=== PATIENT | female | born 1945 | race Caucasian/White ===

== ENCOUNTER 2019-09-19 20:49 | Emergency (ER) | payer OTHER ==
[~2019-09-19] VITALS: Ht 170.2 cm; Wt 136.1 kg
[2019-09-19 21:00] VITALS: BP_SYST 128
--- NOTE | 2019-09-19 21:00 | NUR ---
Patient triaged and placed in er [address] w/ kennel hand gurotilio. VSS and patient appears in no acute distress at this time. Accompanied by kennel hand, awaiting available bed, and MD notified of need for MSE.
[2019-09-19 22:26] LABS: ANION GAP 11 (5-15); CALCIUM 8.3 mg/dL (8.4-11.0); CHLORIDE 107 mmol/L (98-107); CREATININE 1.59 mg/dL (0.55-1.30); GLUCOSE 83 mg/dL (70-99); POTASSIUM 3.9 mmol/L (3.5-5.1); SODIUM SERUM 141 mmol/L (136-145); UREA NITROGEN, BLOOD 24 mg/dL (8-21)
[2019-09-19 22:28] LABS: BASOPHILS % (AUTO) 0.3 % (0.0-2.0); HEMOGLOBIN 14.1 g/dL (12.0-16.0); LYMPHOCYTES # (AUTO) 0.7 K/uL (1.0-5.5); LYMPHOCYTES % (AUTO) 5.3 % (20.5-51.5); MEAN CORPUSCULAR HEMOGLOBIN 32 pg (27-31); MEAN CORPUSCULAR HGB CONC 34 % (32-36); MEAN CORPUSCULAR VOLUME 94 fL (79.0-98.0); MONOCYTES # (AUTO) 0.8 K/uL (0.0-1.0); MONOCYTES % (AUTO) 6.1 % (1.7-9.3); NEUTROPHILS # (AUTO) 10.9 K/uL (1.8-7.7); NEUTROPHILS % (AUTO) 88.3 % (40.0-70.0); PLATELET COUNT (AUTO) 455 K/uL (130-430); RED BLOOD CELL COUNT(AUTO) 4.46 MIL/uL (4.2-6.2); RED CELL DISTRIBUTION WIDTH 14.2 % (9.0-15.0); WHITE BLOOD COUNT (AUTO) 12.4 K/uL (4.8-10.8)
[2019-09-19 22:37] LABS: PROTHROMBIN TIME 9.7 SECS (9.5-12.5); TOTAL BILIRUBIN 0.5 mg/dL (0.0-1.0)
[2019-09-19 22:38] LABS: ALANINE AMINOTRANSFERASE 36 U/L (12-78); ALBUMIN 1.4 g/dL (3.4-4.8); ASPARTATE AMINOTRANSFERASE 86 U/L (10-37)
--- NOTE | 2019-09-19 22:40 | NUR ---
Placed in room 2 . Placed on cardiac cath technologist, blood pressure machine and pulse oximeter. To gown for exam. Side rails up. Report given to report given to Callie SHERIFF.
--- NOTE | 2019-09-19 22:45 | NUR ---
ED MD George at bedside for medical evaluation.
--- NOTE | 2019-09-19 22:50 | NUR ---
Assumed care of patient, patient brought to ED for c/o hypoglycemia. Patient was reported to be found by daughter, patient was lethargic, with blood glucose 36. Patient given 250ml D10 and bs 136. On arrival to ED, patient's bs 85. Patient has hx of DM and HTN. Patient AOx4, GCS at this time.
--- NOTE | 2019-09-20 | NUR ---
Patient resting comfortably at this time. No acute distress noted.
--- NOTE | 2019-09-20 01:55 | NUR ---
Patient assisted with a bedpan. Patient reports that she has difficulty with ambulation.
--- NOTE | 2019-09-20 04:10 | NUR ---
Blood glucose at this time 68. Patient given juice and a sandwich. Patient tolerated PO intake well.
[2019-09-20 05:35] LABS: CREATINE KINASE MB 33.5 ng/mL (0-3.6)
--- NOTE | 2019-09-20 06:15 | NUR ---
Incontinent care provided. Patient noted with abrasions to bilateral knees and left elbow. Patient states she has difficulty getting around her house and lives by herself.
[2019-09-20] MEDS: NACL 0.9% 1,000 ML IV ONE ×2 (06:24→06:44)
[2019-09-20] MEDS ORDERED: NACL 0.9% 1,000 ML IV ONE (06:30)
--- NOTE | 2019-09-20 06:35 | NUR ---
Blood sugar 65 at this time. MD George made aware. Patient provided with another sandwich, orange juice, and jello.
[2019-09-20] MEDS ORDERED: D10W 250 ML IV SCH (06:45)
[2019-09-20] MEDS ORDERED: D5W 250 ML IV ONE (07:00)
--- NOTE | 2019-09-20 07:05 | NUR ---
Patient started on D5W 250ml bolus.
--- NOTE | 2019-09-20 07:24 | NUR ---
BS 95 at this time.
--- NOTE | 2019-09-20 07:26 | NUR ---
Report given to SHARITA Yi. All care endorsed.
--- NOTE | 2019-09-20 07:40 | NUR ---
PT RESTING IN BED NO S/S OF DISTRESS AT THIS TIME
--- NOTE | 2019-09-20 09:15 | NUR ---
PT REASSESSED BP AND CLONIDINE ADMINISTERED BEFORE DC
[2019-09-20] MEDS ORDERED: cloNIDine HCL 0.1 MG TABLET PO ONE (09:30)
--- NOTE | 2019-09-20 09:35 | NUR ---
Patient to be transferred to [facility]. Is being transferred due to higher level of care. Receiving facility has accepting physician and available space. ER physician has signed transfer form. Patient or responsible democrat has agreed to transfer and signed form. Patient belongings inventoried and will be sent with patient. Copy of nursing notes, lab reports, EKG, Physicians Orders and X-rays to be sent with patient. Report called to ADMISSION at receiving facility. Receiving physician is HETAL. [facility] ambulance service has been called for transfer.
[2019-09-20 10:26] VITALS: BP_SYST 166
== END 2019-09-20 09:35 | disposition other institution (70) ==
LOC: SED 20:49
DX: E11.649 Type 2 diabetes mellitus with hypoglycemia without coma (principal); R55 Syncope and collapse; J18.9 Pneumonia, unspecified organism; J90 Pleural effusion, not elsewhere classified
CPT/HCPCS: 36415; 70450-TC; 71045; 80053; 82550-TC; 82553-TC; 83880; 84484; 85025; 85610-TC; 85730-TC; 93005; 96365; 99285